=== PATIENT | male | born 1970 | race Caucasian/White ===

== ENCOUNTER 2017-11-20 12:37 | Emergency (ER) | payer OTHER ==
[~2017-11-20] VITALS: Ht 170.2 cm; Wt 78.2 kg
[2017-11-20 12:40] VITALS: TEMP 37.5; Ht 170.2 cm; Wt 78.2 kg
[2017-11-20] MEDS ORDERED: KETOROLAC TROMETHAMINE 30 MG/ML VIAL IV STA (12:53)
[2017-11-20] MEDS ORDERED: SODIUM CHLORIDE 0.9% 1000ML 1,000 ML IV STA (12:53)
[2017-11-20] MEDS ORDERED: DEXAMETHASONE SOD INJ 4 MG/ML VIAL IV STA (12:53)
[2017-11-20] MEDS ORDERED: AMPICILLIN/SULBACTAM SOD INJ 3,000 MG in SODIUM CHLORIDE 0.9% 100ML 100 ML IV STA (12:53)
--- NOTE | 2017-11-20 12:55 | EMERGENCY ROOM VISIT NOTE ---
History Report prepared by Karlie: Manuel Hughes Under the Supervision of: Chester IrwinO. First contact with patient: 12:44 Chief Complaint: THROAT PAIN/INJURY Stated Complaint: ABCESS ON TONSIL - REF BY History of Present Illness The patient is a 47 year old male who presents to the Emergency Room with complaints of a worsening illness that started 2 weeks ago. He states that when he first started feeling poorly, he was seen at the [facility], and was swabbed for strep. The patient was told that he had an infection, but was not started on any medication. He says that he started getting worse 3 to 4 days ago , with worsening tightness on the left side of his face and mouth, with tonsillar swelling. The patient says that he has had intermittent fevers, his highest temperature being 101.3. He states that it has been hard for him to take deep breaths due to the pain. He was seen at the [facility] clinic earlier today, and was referred here for a peritonsillar abscess on his left side. He denies any nausea, vomiting, chest pain, or shortness of breath. He notes no chronic medical conditions, and no surgical history. The patient states that he smokes cigarettes and drinks occasional alcohol. Source of History: patient Onset: 2 weeks ago Position: other (global) Symptom Intensity: sent here for peritonsillar abscess left side Quality: other (illness) Timing: worsening Associated Symptoms: + fevers, + sorethroat, No chest pain, No SOB, No nausea, No vomiting Note: Associated symptoms: Tightness left side of face and mouth. Review of Systems See HPI for pertinent positives & negatives. A total of 10 systems reviewed and were otherwise negative. Past Medical & Surgical Medical Problems: (1) No chronic diseases present Family History No pertinent family history Social History Smoking Status: Current Every Day Smoker Alcohol Use: occasionally Marital Status: Housing Status: lives with family Occupation Status: employed Physical Exam Vital Signs Date Time Temp Pulse Resp B/P (MAP) Pulse Ox O2 Delivery O2 Flow Rate FiO2 11/20/17 13:25 92 20 150/90 98 Room Air 11/20/17 13:12 97 Room Air 11/20/17 12:40 37.5 96 18 133/84 98 Room Air Physical Exam GENERAL: Patient is awake, alert, and in no acute distress. Patient is resting comfortably and showing no signs of anxiety EYES: The conjunctivae are clear. The pupils are round and reactive. EARS, NOSE, MOUTH AND THROAT: There was significant erythema noted to the posterior oropharynx. There was unilateral tonsillar hypertrophy on the left, uvular deviation noted. Scant exudate noted bilaterally. NECK: Significant left cervical adenopathy noted to palpation. Range of motion appeared intact. RESPIRATORY: Normal respiratory effort is noted there is no evidence of wheezing rhonchi or rales CARDIOVASCULAR: Regular rate and rhythm noted there no murmurs rubs or gallops normal S1 normal S2 GASTROINTESTINAL: The abdomen is soft. Bowel sounds are present in all quadrants. Abdomen is nontender MUSCULOSKELETAL/EXTREMITIES: There is no evidence of gross deformity full range of motion is noted in the hips and shoulders SKIN: There is no obvious evidence of any rash. There are no petechiae, pallor or cyanosis noted. NEUROLOGIC: Patient is awake alert and oriented x3. Medical Decision & Procedures ER Provider Diagnostic Interpretation: X-ray results as stated below per interpretation by me and the radiologist. CHEST ONE VIEW PORTABLE CLINICAL HISTORY: CHEST PAIN dyspnea COMPARISON STUDY: No previous studies for comparison. FINDINGS: The bones soft tissues and hemidiaphragms are normal. The cardiomediastinal silhouette is normal. The lungs are clear. The pulmonary vasculature is normal. IMPRESSION: Negative chest. The above report was generated using voice recognition software. It may contain grammatical, syntax or spelling errors. Electronically signed by: Henrry Miller M.D. 11/20/2017 1:12 PM Dictated Date/Time: 11/20/2017 1:12 PM Laboratory Results 11/20/17 13:00 Red Blood Count 5.20, Mean Corpuscular Volume 87.5, Mean Corpuscular Hemoglobin 31.0, Mean Corpuscular Hemoglobin Concent 35.4, Mean Platelet Volume 9.0, Neutrophils (%) (Auto) 91.4, Lymphocytes (%) (Auto) 4.4, Monocytes (%) (Auto) 3.4, Eosinophils (%) (Auto) 0.1, Basophils (%) (Auto) 0.1, Neutrophils # (Auto) 20.80, Lymphocytes # (Auto) 1.01, Monocytes # (Auto) 0.78, Eosinophils # (Auto) 0.03, Basophils # (Auto) 0.03 11/20/17 13:00 Test 11/20/17 13:00 White Blood Count 22.79 K/uL (4.8-10.8) Red Blood Count 5.20 M/uL (4.7-6.1) Hemoglobin 16.1 g/dL (14.0-18.0) Hematocrit 45.5 % (42-52) Mean Corpuscular Volume 87.5 fL (80-100) Mean Corpuscular Hemoglobin 31.0 pg (25-34) Mean Corpuscular Hemoglobin Concent 35.4 g/dl (32-36) Platelet Count 255 K/uL (130-400) Mean Platelet Volume 9.0 fL (7.4-10.4) Neutrophils (%) (Auto) 91.4 % Lymphocytes (%) (Auto) 4.4 % Monocytes (%) (Auto) 3.4 % Eosinophils (%) (Auto) 0.1 % Basophils (%) (Auto) 0.1 % Neutrophils # (Auto) 20.80 K/uL (1.4-6.5) Lymphocytes # (Auto) 1.01 K/uL (1.2-3.4) Monocytes # (Auto) 0.78 K/uL (0.11-0.59) Eosinophils # (Auto) 0.03 K/uL (0-0.5) Basophils # (Auto) 0.03 K/uL (0-0.2) RDW Standard Deviation 41.2 fL (36.4-46.3) RDW Coefficient of Variation 12.8 % (11.5-14.5) Immature Granulocyte % (Auto) 0.6 % Immature Granulocyte # (Auto) 0.14 K/uL (0.00-0.02) Anion Gap 8.0 mmol/L (3-11) Est Creatinine Clear Calc Drug Dose 84.6 ml/min Estimated GFR () 101.7 Estimated GFR (Non- 87.7 BUN/Creatinine Ratio 8.3 (10-20) Calcium Level 9.3 mg/dl (8.5-10.1) Total Bilirubin 0.5 mg/dl (0.2-1) Direct Bilirubin 0.1 mg/dl (0-0.2) Aspartate Amino Transf (AST/SGOT) 10 U/L (15-37) Alanine Aminotransferase (ALT/SGPT) 24 U/L (12-78) Alkaline Phosphatase 95 U/L (45-117) Total Protein 9.0 gm/dl (6.4-8.2) Albumin 3.7 gm/dl (3.4-5.0) Lipase 45 U/L (73-393) Laboratory results per my review. Medications Administered Medications (Trade) Dose Ordered Sig/Lisset Route Start Time Stop Time Status Last Admin Dose Admin Sodium Chloride 1,000 ml @ 999 mls/hr Q1H1M STAT IV 11/20/17 12:53 11/20/17 13:53 11/20/17 13:08 999 MLS/HR Ampicillin Sodium/ Sulbactam Sodium 3000 mg/Sodium Chloride 108 ml @ 200 mls/hr NOW STAT IV 11/20/17 12:53 11/20/17 13:25 DC 11/20/17 13:23 200 MLS/HR Ketorolac Tromethamine (Toradol Inj) 30 mg NOW STAT IV 11/20/17 12:53 11/20/17 12:56 DC 11/20/17 13:08 30 MG Dexamethasone Sodium Phosphate (Decadron Inj) 10 mg STK-MED ONCE .ROUTE 11/20/17 13:03 11/20/17 13:04 DC 11/20/17 13:08 10 MG ED Course 1246: The patient was evaluated in room A12B. A complete history and physical examination were performed. 1253: Toradol Inj 30 mg IV, Ampicillin Sodium/Sulbactam Sodium 3000 mg/Sodium Chloride 108 ml @ 200 mls/hr IV, Decadron Inj 10 mg IV, NSS 1000 ml @ 999 mls/ hr IV. 1304: I discussed the patient with Dr. Alyssa Marie [facility] - he says to send the patient over to the office. 1330: Upon reevaluation, the patient is resting. I discussed the results and treatment plan with him. He verbalized agreement of the treatment plan. He was discharged. Medical Decision Differential diagnosis: Etiologies such as viral syndrome, tonsillitis, streptococcal pharyngitis, mononucleosis, peritonsillar abscess, retropharyngeal abscess, otitis, pneumonia , influenza, as well as others were entertained. Nursing notes reviewed. The patient is a 47-year-old male who presented to the emergency department with a history and physical exam consistent with a peritonsillar abscess. I discussed his presentation with the on-call ear nose and throat physician. The patient was treated with IV fluids IV pain medicine IV anti-biotics and IV steroids. On subsequent reevaluation he was mildly improved. At the request of the ear nose and throat physician the patient was discharged to go directly to the ear nose and throat physician's office for further evaluation and likely for incision and drainage. The patient was encouraged to have no food or drink by mouth until he was evaluated by the ear nose and throat physician. He was encouraged to go directly to that office. He was also encouraged to return the emergency department immediately if symptoms change worsen or the need arises. Medication Reconcilliation Current Medication List: was personally reviewed by me Blood Pressure Screening Patient's blood pressure: Elevated blood pressure Blood pressure disposition: Elevated BP felt to be situational Consults Time Called: 1300 Consulting Physician: Dr. Alyssa CRAIG E[facility] Returned Call: 1304 I discussed the patient with Dr. Alyssa CRAIG ENT - he says to send the patient over to the office. Impression Primary Impression: Peritonsillar abscess Scribe Attestation The scribe's documentation has been prepared under my direction and personally reviewed by me in its entirety. I confirm that the note above accurately reflects all work, treatment, procedures, and medical decision making performed by me. Departure Information Dispostion Home / Self-Care Referrals No Doctor, Assigned (PCP) Gilmar Shah MD Patient Instructions [facility], Peritonsillar Abscess Additional Instructions Go directly to the ear nose and throat physician's office.
[2017-11-20] MEDS ORDERED: DEXAMETHASONE SOD INJ 10 MG/ML VIAL ONE (13:03)
[2017-11-20 13:07] LABS: HEMATOCRIT 45.5 % (42-52); HEMOGLOBIN 16.1 g/dL (14.0-18.0); MEAN CELL VOLUME 87.5 fL (80-100); MEAN CORPUSCULAR HGB CONC 35.4 g/dl (32-36); PLATELET COUNT 255 K/uL (130-400); RED CELL DISTRIBUTION WIDTH CV 12.8 % (11.5-14.5); RED CELL DISTRIBUTION WIDTH SD 41.2 fL (36.4-46.3); WHITE BLOOD COUNT 22.79 K/uL (4.8-10.8)
[2017-11-20 13:12] VITALS: O2SAT 97
--- NOTE | 2017-11-20 13:14 | DIAGNOSTIC IMAGING REPORT ---
CHEST ONE VIEW PORTABLE CLINICAL HISTORY: CHEST PAIN dyspnea COMPARISON STUDY: No previous studies for comparison. FINDINGS: The bones soft tissues and hemidiaphragms are normal. The cardiomediastinal silhouette is normal. The lungs are clear. The pulmonary vasculature is normal. IMPRESSION: Negative chest. The above report was generated using voice recognition software. It may contain grammatical, syntax or spelling errors. Electronically signed by: Henrry Miller M.D. 11/20/2017 1:12 PM Dictated Date/Time: 11/20/2017 1:12 PM
[2017-11-20 13:25] LABS: ALBUMIN 3.7 gm/dl (3.4-5.0); CALCIUM 9.3 mg/dl (8.5-10.1); CREATININE 1.02 mg/dl (0.60-1.40); POTASSIUM 3.6 mmol/L (3.5-5.1)
[2017-11-20 13:34] LABS: BASO % 0.1 %; BASO ABS # 0.03 K/uL (0-0.2); EOS % 0.1 %; EOS ABS # 0.03 K/uL (0-0.5); IG# 0.14 K/uL (0.00-0.02); LYMPH % 4.4 %; LYMPH ABS # 1.01 K/uL (1.2-3.4); MONO % 3.4 %; MONO ABS # 0.78 K/uL (0.11-0.59); NEUT % 91.4 %
[2017-11-20 14:19] VITALS: BP 148/79; PULSE 88; O2SAT 97
== END 2017-11-20 14:20 | disposition home or self-care (01) ==
LOC: C.EDB 12:39 → C.EDA 14:20
DX: J36 Peritonsillar abscess (principal); F17.210 Nicotine dependence, cigarettes, uncomplicated

== ENCOUNTER → 2017-11-20 | Outpatient (CLI) | payer OTHER | END | disposition home or self-care (01) | LOC: C.LABSPEC 17:20 | DX: J36 Peritonsillar abscess (principal) ==